=== PATIENT | male | born 1950 | race Caucasian/White ===

== ENCOUNTER 2022-06-25 10:06 | Day surgery (SDC) | payer OTHER, BC ==
[2022-06-22 15:48] VITALS: BMI 28.6
[2022-06-25 10:35] VITALS: RESP 20
[2022-06-25 11:40] VITALS: TEMP 97.8
[2022-06-25 12:05] VITALS: BP 136/80; PULSE 72
== END 2022-06-25 12:55 | disposition home or self-care (01) ==
LOC: FASU-ENDO 10:06
PROVIDERS: ATTEND Internal Medicine Gastroenterology
PROC: 0DJD8ZZ Inspection of Lower Intestinal Tract, Via Natural or Artificial Opening Endoscopic (ICD-10-PCS; principal; 2022-06-25 11:10)
DX: Z12.11 Encounter for screening for malignant neoplasm of colon (principal); K57.30 Diverticulosis of large intestine without perforation or abscess without bleeding; Z83.71 Family history of colonic polyps